=== PATIENT | female | born 1985 | race Caucasian/White ===

== ENCOUNTER 2016-11-03 13:40 | Emergency (ER) | payer OTHER ==
[2016-11-03 14:02] LABS: BILIRUBIN NEGATIVE (NEGATIVE); BLOOD 2+ Ery/uL (NEGATIVE); CLARITY CLEAR (CLEAR); COLOR YELLOW (YELLOW); GLUCOSE (U) NORMAL (NORMAL); KETONE (U) NEGATIVE (NEGATIVE); LEUKOCYTES 1+ Leu/uL (NEGATIVE); NITRITE NEGATIVE (NEGATIVE); PROTEIN NEGATIVE (NEGATIVE); SPECIFIC GRAVITY 1.025 (1.001-1.030); UROBILINOGEN 0.2 mg/dL (0.2-1.0)
[2016-11-03 14:16] LABS: BACTERIA TRACE; SPERM PRESENT; URINARY WBC 20-50
== END 2016-11-03 15:20 | disposition home or self-care (01) ==
LOC: FER 13:40
PROVIDERS: Emergency Medicine
DX: K59.00 Constipation, unspecified (principal); N39.0 Urinary tract infection, site not specified; Z98.890 Other specified postprocedural states
CPT/HCPCS: 74000; 81001

== ENCOUNTER 2020-09-19 15:14 | Emergency (ER) | payer OTHER ==
[~2020-09-19 15:14] MED LIST: ACETAMINOPHEN500 M1 PO; AMOXICILLIN500 MG PO; BUPRENORPHINE HC8 MG PO; COLACE100 MG PO; MIRALAX17 GM PO; MOTRIN600 MG PO; NEURONTIN300 MG PO; PRENATAL FORMU1 EACH PO
[2020-09-19 16:49] LABS: BASOPHIL 0.4 % (0-2); EOSINOPHIL 2.9 % (0-5); HCT 40.7 % (37.0-47.0); HGB 13.5 g/dl (12.5-16.0); LYMPHOCYTE 15.4 % (15-48); MCH 32.7 pg (25.0-31.0); MCHC 33.2 g/dL (32.0-36.0); MCV 98.5 fL (78.0-100.0); MONOCYTE 7.9 % (0-12); MPV 9.3 fL (6.0-9.5); NEUTROPHIL 73.2 % (41-80); NRBC 0; PLT 220 K/uL (150-400); RBC 4.13 M/uL (4.20-5.40); RDW 12.1 % (11.5-14.0); WBC 8.2 K/uL (4.0-10.5)
[2020-09-19 16:50] LABS: BILIRUBIN NEGATIVE (NEGATIVE); BLOOD 1+ Ery/uL (NEGATIVE); CLARITY CLEAR (CLEAR); COLOR YELLOW (YELLOW); GLUCOSE (U) NORMAL (NORMAL); LEUKOCYTES NEGATIVE Leu/uL (NEGATIVE); NITRITE NEGATIVE (NEGATIVE); PROTEIN NEGATIVE (NEGATIVE); SPECIFIC GRAVITY >=1.030 (1.001-1.030); UROBILINOGEN 0.2 mg/dL (0.2-1.0)
[2020-09-19 16:54] LABS: ECSTASY (MDMA) NEGATIVE (NEGATIVE); MARIJUANA (THC) NEGATIVE (NEGATIVE); METHADONE NEGATIVE (NEGATIVE); OPIATES NEGATIVE (NEGATIVE)
[2020-09-19 16:55] LABS: AMPHETAMINES NEGATIVE (NEGATIVE); BARBITURATES NEGATIVE (NEGATIVE); OXYCODONE NEGATIVE (NEGATIVE)
[2020-09-19 16:59] LABS: BACTERIA TRACE; SQUAMOUS EPITHELIAL CELLS >50
[2020-09-19 17:10] LABS: BILIRUBIN - TOTAL 0.3 mg/dL (0.2-1.0); CREATININE 0.61 mg/dL (0.51-0.95); GLOBULIN (CALCULATION) 3.2 g/dL; POTASSIUM 4.4 mmol/L (3.5-5.1); TOTAL PROTEIN 7.2 g/dL (6.4-8.2)
== END 2020-09-19 18:34 | disposition home or self-care (01) ==
LOC: FER 15:14
PROVIDERS: Nurse Practitioner Family
DX: R10.84 Generalized abdominal pain (principal); R11.0 Nausea; M54.9 Dorsalgia, unspecified; Z90.49 Acquired absence of other specified parts of digestive tract; Z98.890 Other specified postprocedural states
CPT/HCPCS: 36415; 80053; 80305; 81001; 85025; J2405; J7030; Q9967

== ENCOUNTER 2020-11-04 21:04 | Emergency (ER) | payer OTHER ==
[2020-11-04 22:23] LABS: BASOPHIL 0.5 % (0-2); BILIRUBIN NEGATIVE (NEGATIVE); BLOOD 3+ Ery/uL (NEGATIVE); CLARITY CLEAR (CLEAR); COLOR YELLOW (YELLOW); GLUCOSE (U) NORMAL (NORMAL); HCT 38.1 % (37.0-47.0); HGB 12.9 g/dl (12.5-16.0); LEUKOCYTES NEGATIVE Leu/uL (NEGATIVE); LYMPHOCYTE 28.8 % (15-48); MCHC 33.9 g/dL (32.0-36.0); MCV 97.4 fL (78.0-100.0); MONOCYTE 8.3 % (0-12); MPV 9.6 fL (6.0-9.5); NEUTROPHIL 56.8 % (41-80); NITRITE NEGATIVE (NEGATIVE); NRBC 0; PLT 207 K/uL (150-400); PROTEIN NEGATIVE (NEGATIVE); RBC 3.91 M/uL (4.20-5.40); RDW 12.3 % (11.5-14.0); SPECIFIC GRAVITY 1.015 (1.001-1.030); UROBILINOGEN 0.2 mg/dL (0.2-1.0)
[2020-11-04 22:27] LABS: ALBUMIN 3.8 g/dL (3.4-5.0); BILIRUBIN - TOTAL 0.2 mg/dL (0.2-1.0); CREATININE 0.6 mg/dL (0.51-0.95); GLOBULIN (CALCULATION) 3.3 g/dL; POTASSIUM 3.8 mmol/L (3.5-5.1); TOTAL PROTEIN 7.1 g/dL (6.4-8.2)
[2020-11-04 22:35] LABS: AMORPHOUS PHOSPHATE CRYSTALS TRACE; BACTERIA TRACE
[2020-11-07 00:07] LABS: CHLAMYDIA TRACHOMATIS, NAA Negative (Negative); NEISSERIA GONORRHOEAE, NAA Negative (Negative)
== END 2020-11-05 04:56 | disposition home or self-care (01) ==
LOC: FER 21:04
PROVIDERS: Emergency Medicine
DX: O20.0 Threatened abortion (principal)
CPT/HCPCS: 36415; 76830; 80053; 81001; 83690; 84702; 85025; 86900; 86901; 87210; 87491; 87591